=== PATIENT | female | born 1975 | race Caucasian/White ===

== ENCOUNTER → 2016-09-11 | Outpatient (CLI) | payer OTHER ==
[~2016-09-11] MED LIST: /PROG10CA OR; ASPI81TA83 OR; PERC5TAB8 OR
[2016-09-11 14:42] LABS: BASO % 0.3 % (0.0-1.0); EOS # 0.1 K/mm3 (0.0-0.50); EOS % 0.9 % (0.0-3.0); LARGE UNSTAINED CELL # 0.1 K/mm3 (0.0-0.4); LARGE UNSTAINED CELL % 1.3 % (0.0-4.0); LYMPH # 1.5 K/mm3 (1.5-4.5); MEAN CORPUSCULAR HEMOGLOBIN 30.9 pg (27.0-33.0); MEAN CORPUSCULAR HGB CONC 34.8 g/dl (32.0-36.5); MEAN CORPUSCULAR VOLUME 88.8 fl (80.0-96.0); MONO # 0.4 K/mm3 (0.0-0.8); MONO % 3.7 % (0.0-5.0); NEUTROPHILS # 8.9 K/mm3 (1.8-7.7); NEUTROPHILS % 79.9 % (36.0-66.0); PLATELET COUNT, AUTOMATED 290 k/mm3 (150-450); RED CELL DISTRIBUTION WIDTH 13.1 % (11.5-14.5); WHITE BLOOD COUNT 11.1 K/mm3 (4.0-10.0)
== END ==
LOC: M LAB 13:02
PROVIDERS: ATTEND Obstetrics & Gynecology
DX: O09.512 Supervision of elderly primigravida, second trimester (principal)

== ENCOUNTER → 2016-09-19 | Outpatient (CLI) | payer OTHER | LOC: M LAB 07:41 | PROVIDERS: ATTEND Obstetrics & Gynecology | DX: Z34.83 Encounter for supervision of other normal pregnancy, third trimester (principal) ==

== ENCOUNTER → 2016-10-23 | Outpatient (REF) | payer OTHER | LOC: M LAB REF 12:31 | PROVIDERS: ATTEND Advanced Practice Midwife | DX: Z36 Encounter for antenatal screening of mother (principal); Z3A.35 35 weeks gestation of pregnancy ==

== ENCOUNTER 2016-11-18 05:24 | Inpatient (IN) | payer OTHER ==
[2016-11-18] VITALS (8 sets, daily range): BP systolic 105–120; BP diastolic 54–75
[~2016-11-18] VITALS: Ht 198.1 cm; Wt 104.0 kg
[~2016-11-18 05:24] MED LIST changes: +ACYC200CA PO; +GLYB5TA GT; +MAGN500C PO
[2016-11-18] MEDS ORDERED: BICITRA 30ML SOLN UDC PO ONE (05:45)
[2016-11-18] MEDS ORDERED: LR 1,000 ML IV SCH ×2 (05:45→10:15)
[2016-11-18] MEDS ORDERED: LR 800 ML IV ONE (05:45)
[2016-11-18 06:34] LABS: MEAN CORPUSCULAR HEMOGLOBIN 29.5 pg (27.0-33.0); MEAN CORPUSCULAR HGB CONC 34.3 g/dl (32.0-36.5); MEAN CORPUSCULAR VOLUME 86.2 fl (80.0-96.0); RED CELL DISTRIBUTION WIDTH 14.4 % (11.5-14.5); WHITE BLOOD COUNT 11.9 K/mm3 (4.0-10.0)
[2016-11-18] MEDS ORDERED: RANI15TA PO (06:49)
[2016-11-18] MEDS ORDERED: TUMS500C PO (06:49)
[2016-11-18 08:17] LABS: ANION GAP 11 MEQ/L (8-16); BLOOD UREA NITROGEN 9 MG/DL (7-18); CALCIUM LEVEL 9.2 MG/DL (8.5-10.1); CARBON DIOXIDE LEVEL 21 MEQ/L (21-32); CHLORIDE LEVEL 110 MEQ/L (98-107); CREATININE FOR GFR 0.75 MG/DL (0.55-1.02); GLOMERULAR FILTRATION RATE > 60.0 (>58); GLUCOSE, FASTING 105 MG/DL (70-105); POTASSIUM SERUM 3.9 MEQ/L (3.5-5.1); SODIUM LEVEL 142 MEQ/L (136-145)
--- NOTE | 2016-11-18 08:17 | HPE ---
DATE OF ADMISSION: 11/18/2016 Thao is a 41-year-old female 7, para 1-0-5-1 with a history of prior section. EDC 11/22/2016, EGA 39+ weeks gestation who is being admitted for elective repeat section. The patient also desires permanent tubal sterilization. Upon evaluation in labor and delivery, no bleeding. No leakage of fluid. Good movement. Her records reviewed which was essentially . The patient did have gestational diabetes with this , well-controlled. lab: Blood type is O+, rubella immune, hepatitis negative, HIV negative, GC chlamydia normal. Her 3-hour testing was also abnormal. negative MEDICAL HISTORY: Significant for: Depression. Migraine. History of herpes infection for which she has been on suppressive therapy since 36 weeks. PAST SURGICAL HISTORY: Dilation and curettage (D and C). Breast augmentation. Shoulder surgery. times one. SOCIAL HISTORY: She is . Denies any alcohol, drugs or cigarette smoking. REVIEW OF SYSTEMS: Unremarkable. FAMILY HISTORY: Significant for ovarian cancer. MEDICATION: - glyburide - vitamins ALLERGIES: No known drug allergies. PHYSICAL EXAMINATION: Obese female in no acute distress. Abdomen: Soft, nontender, nondistended. Extremities: No clubbing, cyanosis or edema. Vaginal exam deferred. Tracing reviewed category one tracing. ASSESSMENT: 1. Intrauterine at 39 weeks gestation. 2. History of prior section for elective repeat section. 3. Desires permanent tubal sterilization. 4. Gestational diabetes on glyburide. delivery. Awaiting OR for repeat section and bilateral tubal ligation.
[2016-11-18] MEDS ORDERED: NALBUPHINE HCL 10 MG/ML AMP (J2300) IV PRN (08:36)
[2016-11-18] MEDS ORDERED: NALOXONE INJ 0.4 MG/1 ML VIAL (J2310) IV PRN ×2 (08:36)
[2016-11-18] MEDS ORDERED: ONDANSETRON 4MG/2ML VIAL (J2405) IV PRN ×2 (08:36→10:15)
[2016-11-18] MEDS ORDERED: OXYTOCIN INJ 10 UNITS/ML VIAL (J2590) As Ordered ONE (08:48)
[2016-11-18] MEDS ORDERED: MORPHINE PRES-FREE INJ 10 MG/10 ML VIAL (J2274) As Ordered ONE (08:48)
[2016-11-18] MEDS ORDERED: ePHEDrine SULFATE 25 MG/5 ML(5MG/ML) SYRINGE As Ordered ONE (08:48)
[2016-11-18] MEDS: PRENATAL VITAMIN TAB PO SCH (09:00)
[2016-11-18] MEDS ORDERED: ONDANSETRON 4MG/2ML VIAL (J2405) As Ordered ONE (09:01)
[2016-11-18] MEDS ORDERED: KETOROLAC 60 MG/2 ML VIAL (J1885) As Ordered ONE (09:01)
[2016-11-18] MEDS ORDERED: HEPATITIS B VAC *BIRTH DOSE ONLY*(ENGERIX) 10 MCG/0.5 ML SYRINGE As Ordered ONE (09:10)
[2016-11-18] MEDS ORDERED: PHYTONADIONE 1 MG/0.5 ML SYRINGE (J3430) As Ordered ONE (09:10)
[2016-11-18] MEDS ORDERED: ERYTHROMYCIN OPHTH OINT As Ordered ONE (09:10)
[2016-11-18 09:13] LABS: CORD GAS ABE A -5.4; CORD GAS HCO3 A 20.7 MEQ/L; CORD GAS O2 SAT A 75.5 %; CORD GAS PCO2 A 42.4 mmHg; CORD GAS PH A 7.307 UNITS; CORD GAS PO2 A 36.9 mmHg; CORD GAS SBC A 19.6 MEQ/L
[2016-11-18 09:15] LABS: CORD GAS ABE V -2.6; CORD GAS HCO3 V 24.3 MEQ/L; CORD GAS O2 SAT V 64.4 %; CORD GAS PCO2 V 49.2 mmHg; CORD GAS PH V 7.311 UNITS; CORD GAS PO2 V 29.4 mmHg; CORD GAS SBC V 21.5 MEQ/L; CORD GAS TCO2 V 25.8 MEQ/L
[2016-11-18] MEDS ORDERED: MEPERIDINE 50 MG/ML 1ML VIAL (J2175) As Ordered ONE (09:17)
[2016-11-18] MEDS ORDERED: LIDOCAINE 2% INJ 100 MG/5 ML SDV (FOR ANES.) As Ordered ONE (09:17)
[2016-11-18] MEDS ORDERED: PROPOFOL 200 MG/20 ML VIAL As Ordered ONE (09:18)
[2016-11-18] MEDS ORDERED: MEASLES,MUMPS,RUBELLA VACCINE INJ (MMR-II) (90707) SC SCH (09:45)
[2016-11-18] MEDS ORDERED: NORCO, ANEXSIA 5/325MG TABLET (HYDROcodone/ACETAMINOPHEN) PO PRN (09:45)
[2016-11-18] MEDS ORDERED: RHOGAM 300 MCG (1500 IU) INJ (J2790) IM SCH (09:45)
[2016-11-18] MEDS ORDERED: METOCLOPRAMIDE INJ 10MG/2ML VIAL (J2765) IV PRN (10:15)
[2016-11-18] MEDS ORDERED: fentaNYL 100 MCG/2 ML INJECTION (J3010) IV PRN (10:15)
[2016-11-18] MEDS ORDERED: PERCOCET 5MG/325MG TAB PO PRN (10:15)
[2016-11-18] MEDS: METOCLOPRAMIDE INJ 10MG/2ML VIAL (J2765) IV PRN ×2 (13:52→19:57)
[2016-11-18] MEDS: IBUPROFEN 800 MG TAB PO SCH (18:23)
[2016-11-18] MEDS: DOCUSATE SODIUM 100 MG CAP PO SCH (19:57)
[2016-11-18] MEDS: LR 1,000 ML IV SCH ×2 (20:50→20:51)
[2016-11-18] MEDS: NORCO, ANEXSIA 5/325MG TABLET (HYDROcodone/ACETAMINOPHEN) PO PRN (21:56)
[2016-11-19] MEDS: IBUPROFEN 800 MG TAB PO SCH ×3 (01:04→16:47)
[2016-11-19] MEDS: LR 1,000 ML IV SCH ×3 (01:43→16:48)
[2016-11-19 02:24] VITALS: BP 104/54
[2016-11-19] MEDS: NORCO, ANEXSIA 5/325MG TABLET (HYDROcodone/ACETAMINOPHEN) PO PRN ×4 (05:05→21:05)
[2016-11-19 06:08] VITALS: BP 103/51
[2016-11-19 07:07] LABS: MEAN CORPUSCULAR HGB CONC 34.4 g/dl (32.0-36.5); MEAN CORPUSCULAR VOLUME 87.1 fl (80.0-96.0); RED CELL DISTRIBUTION WIDTH 14.9 % (11.5-14.5); WHITE BLOOD COUNT 9.3 K/mm3 (4.0-10.0)
[2016-11-19 07:23] LABS: ANION GAP 6 MEQ/L (8-16); BLOOD UREA NITROGEN 6 MG/DL (7-18); CALCIUM LEVEL 8.2 MG/DL (8.5-10.1); CARBON DIOXIDE LEVEL 26 MEQ/L (21-32); CHLORIDE LEVEL 107 MEQ/L (98-107); CREATININE FOR GFR 0.68 MG/DL (0.55-1.02); GLOMERULAR FILTRATION RATE > 60.0 (>58); GLUCOSE, FASTING 105 MG/DL (70-105); POTASSIUM SERUM 3.9 MEQ/L (3.5-5.1); SODIUM LEVEL 139 MEQ/L (136-145)
[2016-11-19] MEDS: PRENATAL VITAMIN TAB PO SCH (08:36)
[2016-11-19] MEDS: DOCUSATE SODIUM 100 MG CAP PO SCH ×2 (08:36→21:04)
--- NOTE | 2016-11-19 09:36 | RO ---
DATE OF PROCEDURE: 11/18/2016 Thao is a 41-year-old female, 7, para 0-5-1, who is admitted at 39+ weeks gestation for an elective repeat section. The patient also desires permanent tubal sterilization. During this , she had gestational diabetes, for which she was on glyburide. PREOPERATIVE DIAGNOSES: 1. Term for an elective repeat section. 2. Gestational diabetes. 3. Desires permanent tubal sterilization. POSTPROCEDURE DIAGNOSES: 1. Term for an elective repeat section. 2. Gestational diabetes. 3. Desires permanent tubal sterilization. 4. Dense pelvic adhesion. PROCEDURES: 1. Repeat section. 2. Bilateral tubal ligation using Filshie clips 3. Revision of old scar. 4. Lysis of adhesions. ANESTHESIA: Spinal. SURGEON: Dr. Urrutia RESPIRATORY ASSISTANT: Dr. Nicole COMPLICATIONS: None. ESTIMATED BLOOD LOSS: 500 mL. FINDINGS: Male in occiput transverse position. scores 8 and 9. weight 8 pounds 10 ounces. Normal-appearing placenta. The left tube was found to be slightly adherent at the fimbriated end. The right tube seems to be missing from a prior ectopic . PROCEDURE: After obtaining informed consent the patient was taken to the operating room where a spinal anesthetic was found to be adequate. She was then draped and prepped usual sterile fashion in the supine position. At this point, elliptical incision was made over her old scar. The old scar was removed. The incision was carried down to the fascia. Fascia was incised in midline fashion and carried through laterally. Superior aspect of the fascia was then grasped with two Viet clamps, tented off and dissected off the rectus muscles sharply. The inferior aspect was dissected off in a similar fashion. Dense adhesions were found at the level of her prior surgeries and abdominoplasty. The rectus muscle was found to be encapsulated with a fibrous sheath. After careful dissection and lysing of adhesions, we were able to enter the peritoneal cavity. Upon entering the peritoneal cavity, adhesions were also noted to the omentum. These were taken down with Metzenbaum and Bovie. We then were able to create a bladder flap and make a low-transverse uterine incision to deliver the infant. The was delivered in an atraumatic fashion. An anterior placenta was encountered. Nose and mouth bulb suctioned. Cord doubly clamped and cut, and infant was handed over to the waiting warmer. Cord blood and cord gas were sent. The placenta removed manually. Uterus cleared of all clot and debris and the uterine incision was then repaired in two separate layers of #0 Vicryl suture. At this point, attention was turned to the fallopian tube on the left where the fimbriated end was found to be nubbed. The rest of the tube appeared to be healthy. A Filshie clip was then applied approximately 2-3 cm away from the cornual area on that tube. We then turned our attention to the right fallopian tube. This was found to be already segmented from the prior ectopic that she had. There is no visible viable tube noted. At this point, the pelvis was copiously irrigated with normal saline and suctioned out. Attention turned to the peritoneum, which was closed using #2-0 Vicryl. Fascia closed in two separate segments using #0 PDS suture and the skin was closed in a subcuticular fashion using #3-0 Vicryl. The patient tolerated procedure well. Steri-Strips placed. She was then transferred to recovery room in stable condition.
[2016-11-19 10:00] VITALS: BP 124/64
[2016-11-19 14:00] VITALS: BP 107/57
[2016-11-19 18:10] VITALS: BP 128/58
[2016-11-19 22:32] VITALS: BP 119/59
[2016-11-20] MEDS: IBUPROFEN 800 MG TAB PO SCH ×2 (00:25→07:30)
[2016-11-20] MEDS: NORCO, ANEXSIA 5/325MG TABLET (HYDROcodone/ACETAMINOPHEN) PO PRN ×2 (01:10→05:35)
[2016-11-20] MEDS: LR 1,000 ML IV SCH ×2 (01:43→09:43)
[2016-11-20 06:00] VITALS: BP 117/70
[2016-11-20] MEDS: PRENATAL VITAMIN TAB PO SCH (07:28)
[2016-11-20] MEDS: DOCUSATE SODIUM 100 MG CAP PO SCH (07:28)
--- NOTE | 2016-11-20 08:54 | DS.PDOC ---
Discharge Summary General Date of Admission Nov 18, 2016 at 05:24 Date of Discharge 11/20/2016 Attending Physician: Tristian Urrutia DO Discharge Summary PROCEDURES PERFORMED DURING STAY: Elective repeat section with permanent tubal sterilization. ADMITTING DIAGNOSES: 1. IUP at 39 weeks gestation. 2. History of prior section. 3. Gestational diabetes controlled with oral medication-Glyburide. 4. Elective repeat section with desire for permanent tubal sterilization DISCHARGE DIAGNOSES: 1. Day 2 postoperative from elective repeat section with tubal sterilization. COMPLICATIONS/CHIEF COMPLAINT: Previous C Section. HISTORY OF PRESENT ILLNESS: Patient is a 41-year-old female who is a 052 at 39 weeks gestation with an EDC of 11/22/2016. She initiated her care in the first trimester at [facility]. 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 Patient has been on suppressive therapy since 36 weeks. She also has a history of migraines and depression. Patient was admitted to labor and delivery for an elective repeat section with desire for tubal sterilization. HOSPITAL COURSE: Uncomplicated. DISCHARGE MEDICATIONS: Please see below. Percocet sent from a office. Discontinue glyburide. Continue with Motrin 800 mg by mouth care when necessary for pain. Obtained OTC. May take Tylenol when not taking Percocet. Tylenol thousand milligrams by mouth when necessary for pain every 8 hours. ALLERGIES: Please see below. PHYSICAL EXAMINATION ON DISCHARGE: VITAL SIGNS: Please see below. GENERAL: RESPIRATORY EXAMINATION: Rate is regular. No use of accessory muscles. ABDOMINAL EXAMINATION: Low transverse incision: Edges approximated. Steri- Strips in place. No drainage from the site. Superior she incision is slightly red. Fundus is firm and at umbilicus. Perinium: Lochia is scant bright red. EXTREMITIES: Generalized edema with no pitting. LABORATORY DATA: Please see below. ACTIVITY: As tolerated. DIET: Regular. DISCHARGE INSTRUCTIONS: 1. Patient is to follow-up in the office at 2 weeks for incision check and 6 weeks for visit. 2. Reviewed signs and symptoms of endometritis, mastitis, hemorrhage, infection at the incision site, DVT, pulmonary embolism, pain management, and pelvic rest. Patient is to call provider with any signs or symptoms of the above. DISCHARGE CONDITION: Stable. Vital Signs/I&Os Vital Signs Date Time Temp Pulse Resp B/P Pulse Ox O2 Delivery O2 Flow Rate FiO2 11/20/16 06:05 18 11/20/16 06:00 97.1 95 117/70 98 Room Air Discharge Medications Scheduled Acyclovir (Zovirax) 200 Mg Cap 1,000 MG PO DAILY (Reported) Glyburide (Glyburide) 5 Mg Tab 5 MG GT DAILY (Reported) Magnesium Oxide (Magnesium) 500 Mg Cap 500 MG PO DAILY (Reported) Ranitidine Hcl (Zantac) 150 Mg Tab 1 TAB PO BID (Reported) Miscellaneous Medications Calcium Carbonate (Tums) 500 Mg Chw 500 MG PO (Reported) Allergies Coded Allergies: No Known Drug Allergy (Verified Allergy, Unknown, 11/25/12) JULIO VELEZ CNM Nov 20, 2016 08:54
[2016-11-20] MEDS ORDERED: IBUP-1114 PO (10:00)
[2016-11-20] MEDS ORDERED: PRENTAB9 PO (10:00)
== END 2016-11-20 11:16 | disposition home or self-care (01) | DRG 766 ==
LOC: M LDI 05:24 → M OBS 11:23
PROVIDERS: ADMIT Obstetrics & Gynecology; ATTEND Obstetrics & Gynecology
PROC: 0UL70DZ Occlusion of Bilateral Fallopian Tubes with Intraluminal Device, Open Approach (ICD-10-PCS; 2016-11-18)
PROC: 10D00Z1 Extraction of Products of Conception, Low, Open Approach (ICD-10-PCS; principal; 2016-11-18 07:30)
DX: O34.211 Maternal care for low transverse scar from previous cesarean delivery (principal); Z37.0 Single live birth; Z3A.39 39 weeks gestation of pregnancy; O09.523 Supervision of elderly multigravida, third trimester; Z30.2 Encounter for sterilization; O24.425 Gestational diabetes mellitus in childbirth, controlled by oral hypoglycemic drugs

== ENCOUNTER → 2016-12-09 | Outpatient (REF) | payer OTHER ==
[~2016-12-09] MED LIST changes: +IBUP-1114 PO; +PRENTAB9 PO; +RANI15TA PO; +TUMS500C PO
== END ==
LOC: M LAB REF 13:00
PROVIDERS: ATTEND Advanced Practice Midwife
DX: L66.2 Folliculitis decalvans (principal)

== ENCOUNTER → 2017-01-01 | Outpatient (REF) | payer OTHER | LOC: M LAB REF 16:37 | PROVIDERS: ATTEND Obstetrics & Gynecology | DX: A49.02 Methicillin resistant Staphylococcus aureus infection, unspecified site (principal) ==

== ENCOUNTER → 2017-01-07 | Outpatient (REF) | payer OTHER | LOC: M LAB REF 16:30 | PROVIDERS: ATTEND Obstetrics & Gynecology | DX: A49.02 Methicillin resistant Staphylococcus aureus infection, unspecified site (principal) ==

== ENCOUNTER → 2017-06-04 | Outpatient (CLI) | payer BC ==
[2017-06-04 12:30] LABS: ANION GAP 5 MEQ/L (8-16); BLOOD UREA NITROGEN 11 MG/DL (7-18); CALCIUM LEVEL 9.2 MG/DL (8.5-10.1); CARBON DIOXIDE LEVEL 27 MEQ/L (21-32); CHLORIDE LEVEL 108 MEQ/L (98-107); CREATININE FOR GFR 0.64 MG/DL (0.55-1.02); GLOMERULAR FILTRATION RATE > 60.0 (>58); GLUCOSE, FASTING 92 MG/DL (70-105); POTASSIUM SERUM 4.8 MEQ/L (3.5-5.1); SODIUM LEVEL 140 MEQ/L (136-145)
== END ==
LOC: M LAB 10:39
PROVIDERS: ATTEND Family Medicine
DX: R73.9 Hyperglycemia, unspecified (principal)

== ENCOUNTER → 2018-02-09 | Outpatient (CLI) | payer BC, OTHER | LOC: M RAD 11:19 | DX: Z12.31 Encounter for screening mammogram for malignant neoplasm of breast (principal) | CPT/HCPCS: 77067 ==

== ENCOUNTER → 2019-10-09 | Outpatient (REF) | payer BC ==
[~2019-10-09] MED LIST changes: -/PROG10CA OR; +ACYC1CAP20 PO; -ACYC200CA PO; +PROM1CAP OR
[2019-10-09 18:30] LABS: INFLUENZA A AMPLIFICATION NEGATIVE (NEGATIVE); INFLUENZA B AMPLIFICATION POSITIVE (NEGATIVE)
== END ==
LOC: M LAB REF 10:19
PROVIDERS: ATTEND Physician Assistant Medical
DX: R50.9 Fever, unspecified (principal); R52 Pain, unspecified

== ENCOUNTER → 2020-10-14 | Outpatient (REF) | payer BC ==
[~2020-10-14] MED LIST changes: +FLOM0.4C39 PO; -GLYB5TA GT; +GLYB5TAB6 GT; +KETO10TAB PO; +ZOFR4TAB16 PO
[2020-10-14 19:45] LABS: APPEARANCE, URINE CLEAR (CLEAR); BACTERIA, URINE AUTO 2+ (NEGATIVE); BILIRUBIN, URINE AUTO NEGATIVE (NEGATIVE); BLOOD, URINE BLOOD NEGATIVE (NEGATIVE); COLOR, URINE STRAW (YELLOW); GLUCOSE, URINE (UA) AUTO NEGATIVE (NEGATIVE); KETONE, URINE AUTO NEGATIVE (NEGATIVE); LEUKOCYTE ESTERASE, URINE AUTO NEGATIVE (NEGATIVE); NITRITE, URINE AUTO NEGATIVE (NEGATIVE); PROTEIN, URINE AUTO NEGATIVE (NEGATIVE); RBC, URINE AUTO 0 /HPF (0-3); SPECIFIC GRAVITY URINE AUTO 1.004 (1.002-1.035); SQUAMOUS EPITHELIAL CELL UR AU 1 /HPF (0-6); UROBILINOGEN, URINE AUTO 0.2 mg/dL (0.0-2.0); WBC, URINE AUTO 0 /HPF (0-3)
== END ==
LOC: M LAB REF 17:26
PROVIDERS: ATTEND Physician Assistant Medical
DX: N39.0 Urinary tract infection, site not specified (principal)

== ENCOUNTER 2020-10-16 15:10 | Emergency (ER) | payer BC ==
[~2020-10-16] VITALS: Ht 167.6 cm; Wt 78.2 kg
[~2020-10-16 15:10] MED LIST changes: -FLOM0.4C39 PO; -KETO10TAB PO; -ZOFR4TAB16 PO
--- OUTSIDE RECORDS SUMMARY | 2020-10-16 15:17 | CCD | Continuity of Care Document ---
Author Author Thao SANCHEZ DIVISION ORDER ANALYST Organization Unknown Address [address] [place] [id number] Phone [phone] Care Team Providers Care Risk Management Specialist Name Role Phone Jose Cruz Unavailable Problems Active Problems Provider Date Acquired trigger finger JONAHTON Lopez Onset: Social History Type Date Description Comments Sex Unknown ETOH Use Denies alcohol use Tobacco Use Start: Unknown Patient has never smoked Recreational Drug Use Denies Drug Use Allergies, Adverse Reactions, Alerts Active Allergies Reaction Severity Comments Date Keflex Rash 09/07/2020 NKFA 09/07/2020 Seasonal 09/07/2020 Medications Active Medications SIG Qnty Indications Ordering Provide r Date Multivitamin Tablets 1 by mouth every day Unknown Aspirin 81mg Tablets DR take one by mouth daily with food Unknown Phentermine HCL 37.5mg Capsules Unknown MCT Oil Oil Unknown Collagen Ultra Capsules Unknown Immunizations Description No Information Available Vital Signs Date Vital Result Comment 09/07/2020 11:21am Body Temperature 97.2 F 04/01/2016 4:04pm BP Systolic 128 mmHg BP Diastolic 49 mmHg Heart Rate 69 /min Weight 181.00 lb Weight 82.102 kg Height 66 inches 5'6" BMI (Body Mass Index) 29.2 kg/m2 BSA (Body Surface Area) 1.92 m2 Results Description No Information Available Procedures Description No Information Available Medical Devices Description No Information Available Encounters Type Date Location Provider Dx Diagnosis Office Visit 09/07/2020 11:20a [facility] Sami Lopez PEDIATRIC INTENSIVE PHYSICIAN M65.341 Trigger finger, right ring finger Assessments Date Code Description Provider 09/07/2020 M65.341 Trigger finger, right ring finge r JONATHON Lopez Plan of Treatment 09/07/2020 - JONATHON Lopez* M65.341 Trigger finger, right ring finger* Follow up:* 6 Weeks * Instructions:* Keep doing self stretching and strengthening. In any deterioration contact my clinic. Occupational Therapy as instructed. Functional Status Description No Information Available Mental Status Description No Information Available Referrals Description No Information Available
--- OUTSIDE RECORDS SUMMARY | 2020-10-16 15:18 | CCD ---
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 Name Role Phone Ornelas, C Evelyn PA Unavailable Unavailable Ornelas, C Evelyn PA Unavailable Unavailable Ornelas, C Evelyn PA Unavailable Unavailable Ornelas, C Evelyn PA Unavailable Unavailable Ornelas, C Evelyn PA Unavailable Unavailable Ornelas, C Evelyn PA Unavailable Unavailable Ornelas, C Evelyn PA Unavailable Unavailable Ornelas, C Evelyn PA Unavailable Unavailable Ornelas, C Evelyn PA Unavailable Unavailable Ornelas, C Evelyn PA Unavailable Unavailable Ornelas, C Evelyn PA Unavailable Unavailable Ornelas, C Evelyn PA Unavailable Unavailable Ornelas, C Evelyn PA Unavailable Unavailable Ornelas, C Evelyn PA Unavailable Unavailable Ornelas, C Evelyn PA Unavailable Unavailable Ornelas, C Evelyn PA Unavailable Unavailable Ornelas, C Evelyn PA Unavailable Unavailable Ornelas, C Evelyn PA Unavailable Unavailable Ornelas, C Evelyn PA Unavailable Unavailable Ornelas, C Evelyn PA Unavailable Unavailable Ornelas, C Evelyn PA Unavailable Unavailable Ornelas, C Evelyn PA Unavailable Unavailable Ornelas, C Evelyn PA Unavailable Unavailable Ornelas, C Evelyn PA Unavailable Unavailable Ornelas, C Evelyn PA Unavailable Unavailable Ornelas, C Evelyn PA Unavailable Unavailable Ornelas, C Evelyn PA Unavailable Unavailable Ornelas, C Evelyn PA Unavailable Unavailable Ornelas, C Evelyn PA Unavailable Unavailable Ornelas, C Evelyn PA Unavailable Unavailable Ornelas, C Evelyn PA Unavailable Unavailable Ornelas, C Evelyn PA Unavailable Unavailable Ornelas, C Evelyn PA Unavailable Unavailable Ornelas, C Evelyn PA Unavailable Unavailable Ornelas, C Evelyn PA Unavailable Unavailable Ornelas, C Evelyn PA Unavailable Unavailable Ornelas, C Evelyn PA Unavailable Unavailable Ornelas, C Evelyn PA Unavailable Unavailable Ornelas, C Evelyn PA Unavailable Unavailable Ornelas, C Evelyn PA Unavailable Unavailable Ornelas, C Evelyn PA Unavailable Unavailable Ornelas, C Evelyn PA Unavailable Unavailable Ornelas, C Evelyn PA Unavailable Unavailable Ornelas, C Evelyn PA Unavailable Unavailable Ornelas, C Evelyn PA Unavailable Unavailable Ornelas, C Evelyn PA Unavailable Unavailable Ornelas, C Evelyn PA Unavailable Unavailable SlerosalindakaArnulfojtech Unavailable Unavailable SlerosalindakaArnulfojtech Unavailable Unavailable Slezka Vojtech Unavailable Unavailable Slezka Vojtech Unavailable Unavailable Slezka Vojtech Unavailable Unavailable Slezka Vojtech Unavailable Unavailable SlezkaArnulfojtech Unavailable Unavailable SlerosalindakaArnulfojtech Unavailable Unavailable SlezkaArnulfojtech Unavailable Unavailable Slezka Vojtech MD Unavailable Unavailable Slezka Vojtech MD Unavailable Unavailable Slezka Vojtech MD Unavailable Unavailable SlezkaArnulfojtech Unavailable Unavailable SlezkaArnulfojtech Unavailable Unavailable Slezka Vojtech Unavailable Unavailable Slezka Vojtech MD Unavailable Unavailable Slezka Vojtech MD Unavailable Unavailable Slezka Vojtech MD Unavailable Unavailable Slezka Vojtech MD Unavailable Unavailable Slezka Vojtech Unavailable Unavailable Slezka Vojtech Unavailable Unavailable Slezka Vojtech MD Unavailable Unavailable Slezka Vojtech MD Unavailable Unavailable Slezka Vojtech MD Unavailable Unavailable Slezka Vojtech MD Unavailable Unavailable Slezka Vojtech MD Unavailable Unavailable Slezka Vojtech Unavailable Unavailable Slezka Vojtech MD Unavailable Unavailable Slezka Vojtech MD Unavailable Unavailable SlezkaFrancktech Unavailable Unavailable SlezkaArnulfojtech Unavailable Unavailable Slezka Vojtech Unavailable Unavailable SlezkaArnulfojtech Unavailable Unavailable SlezkaArnulfojtech Unavailable Unavailable SlezkaArnulfojtech Unavailable Unavailable SlezkaArnulfojtech Unavailable Unavailable SlezkaArnulfojtech Unavailable Unavailable Slezka Vojtech Unavailable Unavailable Slezka Vojtech Unavailable Unavailable SlezkaArnulfojtech Unavailable Unavailable SlezkaArnulfojtech Unavailable Unavailable Slezka Vojtech Unavailable Unavailable Slezka Vojtech Unavailable Unavailable Slezka Vojtech Unavailable Unavailable SlezkaArnulfojtech Unavailable Unavailable Slezka Vojtech MD Unavailable Unavailable SlezkaArnulfojtech Unavailable Unavailable SlezkaArnulfojtech MD Unavailable Unavailable SlezkaArnulfojtech Unavailable Unavailable Slezka Vojtech Unavailable Unavailable SlezkaArnulfojtech Unavailable Unavailable SlezkaArnulfojtech Unavailable Unavailable SlezkaArnulfojtech Unavailable Unavailable SlezkaArnulfojtech MD Unavailable Unavailable SlezkaArnulfojtech Unavailable Unavailable SlezkaArnulfojtech Unavailable Unavailable SlezkaArnulfojtech Unavailable Unavailable SlezkaArnulfojtech MD Unavailable Unavailable Lonnie, D Uri COMMISSARY MANAGER Unavailable Unavailable Lonnie, D Uri COMMISSARY MANAGER Unavailable Unavailable Lonnie, D Uri COMMISSARY MANAGER Unavailable Unavailable Lonnie, D Uri COMMISSARY MANAGER Unavailable Unavailable Lonnie, D Uri COMMISSARY MANAGER Unavailable Unavailable Lonnie, D Uri COMMISSARY MANAGER Unavailable Unavailable Lonnie, D Uri COMMISSARY MANAGER Unavailable Unavailable Lonnie, D Uri COMMISSARY MANAGER Unavailable Unavailable Lonnie, D Uri COMMISSARY MANAGER Unavailable Unavailable Lonnie, D Uri COMMISSARY MANAGER Unavailable Unavailable Lonnie, D Uri COMMISSARY MANAGER Unavailable Unavailable Lonnie, D Uri COMMISSARY MANAGER Unavailable Unavailable Lonnie, D Uri COMMISSARY MANAGER Unavailable Unavailable Lonnie, D Uri COMMISSARY MANAGER Unavailable Unavailable Lonnie, D Uri COMMISSARY MANAGER Unavailable Unavailable Lonnie, D Uri COMMISSARY MANAGER Unavailable Unavailable Lonnie, D Uri COMMISSARY MANAGER Unavailable Unavailable Lonnie, D Uri COMMISSARY MANAGER Unavailable Unavailable Lonnie, D Uri COMMISSARY MANAGER Unavailable Unavailable Lonnie, D Uri COMMISSARY MANAGER Unavailable Unavailable Lonnie, D Uri COMMISSARY MANAGER Unavailable Unavailable Lonnie, D Uri COMMISSARY MANAGER Unavailable Unavailable Lonnie, D Uri COMMISSARY MANAGER Unavailable Unavailable Lonnie, D Uri COMMISSARY MANAGER Unavailable Unavailable Lonnie, D Uri COMMISSARY MANAGER Unavailable Unavailable Lonnie, D Uri COMMISSARY MANAGER Unavailable Unavailable Lonnie, D Uri COMMISSARY MANAGER Unavailable Unavailable Lonnie, D Uri COMMISSARY MANAGER Unavailable Unavailable Lonnie, D Uri COMMISSARY MANAGER Unavailable Unavailable Lonnie, D Uri COMMISSARY MANAGER Unavailable Unavailable Lonnie, D Uri COMMISSARY MANAGER Unavailable Unavailable Lonnie, D Uri COMMISSARY MANAGER Unavailable Unavailable Lonnie, D Uri COMMISSARY MANAGER Unavailable Unavailable Lonnie, D Uri COMMISSARY MANAGER Unavailable Unavailable Lonnie, D Uri COMMISSARY MANAGER Unavailable Unavailable Anthony, Jose PA Unavailable Unavailable Anthony, Jose PA Unavailable Unavailable Anthony, Jose PA Unavailable Unavailable Anthony, Jose PA Unavailable Unavailable Anthony, Jose PA Unavailable Unavailable Anthony, Jose PA Unavailable Unavailable Anthony, Jose PA Unavailable Unavailable Anthony, Jose PA Unavailable Unavailable Anthony, Jose PA Unavailable Unavailable Anthony, Jose PA Unavailable Unavailable Anthony, Jose PA Unavailable Unavailable Anthony, Jose PA Unavailable Unavailable Anthony, Jose PA Unavailable Unavailable Anthony, Jose PA Unavailable Unavailable Anthony, Jose PA Unavailable Unavailable Anthony, Jose PA Unavailable Unavailable Anthony, Jose PA Unavailable Unavailable Anthony, Jose PA Unavailable Unavailable Anthony, Jose PA Unavailable Unavailable Anthony, Jose PA Unavailable Unavailable Anthony, Jose PA Unavailable Unavailable Anthony, Jose PA Unavailable Unavailable Anthony, Jose PA Unavailable Unavailable Anthony, Jose PA Unavailable Unavailable Anthony, Jose PA Unavailable Unavailable Anthony, Jose PA Unavailable Unavailable Anthony, Jose PA Unavailable Unavailable Anthony, Jose PA Unavailable Unavailable Anthony, Jose PA Unavailable Unavailable Anthony, Jose PA Unavailable Unavailable Anthony, Jose PA Unavailable Unavailable Anthony, Jose PA Unavailable Unavailable Anthony, Jose PA Unavailable Unavailable Anthony, Jose PA Unavailable Unavailable Anthony, Jose PA Unavailable Unavailable Anthnoy, Jose PA Unavailable Unavailable Anthony, Jose PA Unavailable Unavailable Anthony, Jose PA Unavailable Unavailable Anthony, Jose PA Unavailable Unavailable Anthony, Jose PA Unavailable Unavailable Anthony, Jose PA Unavailable Unavailable Anthony, Jose PA Unavailable Unavailable Anthony, Jose PA Unavailable Unavailable Anthony, Jose PA Unavailable Unavailable Anthony, Jose PA Unavailable Unavailable Anthony, Jose PA Unavailable Unavailable Anthony, Jose PA Unavailable Unavailable Anthony, Jose PA Unavailable Unavailable Anthony, Jose PA Unavailable Unavailable Rosalinda SOL MD Unavailable Unavailable Rosalinda SOL MD Unavailable Unavailable Rosalinda SOL MD Unavailable Unavailable PARNES, Z BELÉN MD Unavailable Unavailable PARNES, Z BELÉN MD Unavailable Unavailable PARNES, Z BELÉN MD Unavailable Unavailable PARNES, Z BELÉN MD Unavailable Unavailable PARNES, Z BELÉN MD Unavailable Unavailable PARNES, Z BELÉN MD Unavailable Unavailable PARNES, Z BELÉN MD Unavailable Unavailable PARNES, Z BELÉN MD Unavailable Unavailable PARNES, Z BELÉN MD Unavailable Unavailable PARNES, Z BELÉN MD Unavailable Unavailable PARNES, Z BELÉN MD Unavailable Unavailable PARNES, Z BELÉN MD Unavailable Unavailable PARNES, Z BELÉN MD Unavailable Unavailable PARNES, Z BELÉN MD Unavailable Unavailable PARNES, Z BELÉN MD Unavailable Unavailable PARNES, Z BELÉN MD Unavailable Unavailable PARNES, Z BELÉN MD Unavailable Unavailable PARNES, Z BELÉN MD Unavailable Unavailable PARNES, Z BELÉN MD Unavailable Unavailable PARNES, Z BELÉN MD Unavailable Unavailable PARNES, Z BELÉN MD Unavailable Unavailable PARNES, Z BELÉN MD Unavailable Unavailable PARNES, Z BELÉN MD Unavailable Unavailable PARNES, Z BELÉN MD Unavailable Unavailable PARNES, Z BELÉN MD Unavailable Unavailable PARNES, Z BELÉN MD Unavailable Unavailable PARNES, Z BELÉN MD Unavailable Unavailable PARNES, Z BELÉN MD Unavailable Unavailable PARNES, Z BELÉN MD Unavailable Unavailable PARNES, Z BELÉN MD Unavailable Unavailable PARNES, Z BELÉN MD Unavailable Unavailable PARNES, Z BELÉN MD Unavailable Unavailable PARNES, Z BELÉN MD Unavailable Unavailable PARNES, Z BELÉN MD Unavailable Unavailable PARNES, Z BELÉN MD Unavailable Unavailable ROBL, L RONNY COMMISSARY MANAGER Unavailable Unavailable ROBL, L RONNY COMMISSARY MANAGER Unavailable Unavailable ROBL, L RONNY COMMISSARY MANAGER Unavailable Unavailable ROBL, L RONNY COMMISSARY MANAGER Unavailable Unavailable ROBL, L RONNY COMMISSARY MANAGER Unavailable Unavailable ROBL, L RONNY COMMISSARY MANAGER Unavailable Unavailable ROBL, L RONNY COMMISSARY MANAGER Unavailable Unavailable ROBL, L RONNY COMMISSARY MANAGER Unavailable Unavailable ROBL, L RONNY COMMISSARY MANAGER Unavailable Unavailable ROBL, L RONNY COMMISSARY MANAGER Unavailable Unavailable ROBL, L RONNY COMMISSARY MANAGER Unavailable Unavailable ROBL, L RONNY COMMISSARY MANAGER Unavailable Unavailable ROBL, L RONNY COMMISSARY MANAGER Unavailable Unavailable ROBL, L RONNY COMMISSARY MANAGER Unavailable Unavailable ROBL, L RONNY COMMISSARY MANAGER Unavailable Unavailable ROBL, L RONNY COMMISSARY MANAGER Unavailable Unavailable Re-disclosure Warning The records that you are about to access may contain information from federally-assisted alcohol or drug abuse programs. If such information is present, then the following federally mandated warning applies: This information has been disclosed to you from records protected by federal confidentiality rules (42 CFR part 2). The federal rules prohibit you from making any further disclosure of this information unless further disclosure is expressly permitted by the written consent of the person to whom it pertains or as otherwise permitted by 42 CFR part 2. A general authorization for the release of medical or other information is NOT sufficient for this purpose. The Federal rules restrict any use of the information to criminally investigate or prosecute any alcohol or drug abuse patient.The records that you are about to access may contain highly sensitive health information, the redisclosure of which is protected by Article 27-F of the [facility] Public Health law. If you continue you may have access to information: Regarding HIV / AIDS; Provided by facilities licensed or operated by the [facility] Office of Mental Health; or Provided by the [facility] Office for People With Developmental Disabilities. If such information is present, then the following [facility] mandated warning applies: This information has been disclosed to you from confidential records which are protected by state law. State law prohibits you from making any further disclosure of this information without the specific written consent of the person to whom it pertains, or as otherwise permitted by law. Any unauthorized further disclosure in violation of state law may result in a fine or custodial sentence or both. A general authorization for the release of medical or other information is NOT sufficient authorization for further disc losure. Allergies and Adverse Reactions Type Description Substance Reaction Status Data Source(s ) No Known Drug Allergies No Known Drug Allergies [facility] Family History Family Member Name Family Member Gender Family Member Status Date o f Status Description Data Source(s) Unknown Male Problem [facility] ([facility]) Unknown Male Problem [facility] ([facility]) Unknown Unknown Problem [facility] ([facility]) Encounters Encounter Providers Location Date Indications Data Source(s ) Outpatient Attender: Chase Dong MDReferrer: Esther [email or web address] 09/27/2020 12:00:00 AM [facility] Outpatient Attender: BELÉN SOL MDConsultant: RONNY WEISS NP 09/07/2020 11:19:00 AM [facility] - 09/07/2020 11:19:[address] [facility] Outpatient Attender: Uri Fleming NP Family Practice 09/07/2020 1 0:20:00 AM EST [facility] ([facility]) Outpatient Attender: Jose BATEMAN Family Medicine [facility] 07/16/2020 07:40:00 AM EST [facility] ([facility]) Outpatient Attender: Jose BATEMAN Family Medicine [facility] 05/14/2020 09:00:00 AM EDT [facility] ([facility]) Outpatient Attender: Jose BATEMAN Family Medicine [facility] 04/12/2020 10:40:00 AM EDT [facility] ([facility]) Outpatient Attender: Jose BATEMAN Family Medicine [facility] 03/12/2020 11:20:00 AM EDT [facility] ([facility]) Outpatient Attender: Jose BATEMAN Family Medicine [facility] 02/10/2020 11:20:00 AM EDT [facility] ([facility]) Outpatient Attender: Jose BATEMAN Family Medicine [facility] 01/09/2020 01:20:00 PM EDT [facility] ([facility]) Outpatient Attender: Jose BATEMAN Family Medicine [facility] 12/08/2019 02:00:00 PM EDT [facility] ([facility]) Medications Medication Brand Name Start Date Product Form Dose Route Admi nistrative Instructions Pharmacy Instructions Status Indications Reaction Description Data Source(s) Phentermine Hydrochloride 30 MG Oral Capsule Phentermine HCL 07/16/2020 12:00:00 AM EST ORAL active [facility] ([facility]) Phentermine Hydrochloride 37.5 MG Oral Capsule Phentermine H CL 12/08/2019 12:00:00 AM EDT ORAL active M [facility]ENT ([facility]) Insurance Providers Payer name Policy type / Coverage type Policy ID Covered libertarian ID Covered libertarian's relationship to chino Policy [place] Plan Information BCBS OF JANNA NIELSEN [id number] COMMERCIAL GENERIC [id number] COMMERCIAL GENERIC [id number] [facility] [id number] [id number] Family Depen dent [id number] [employer] [id number] Family Depen dent [id number] [employer] [id number] Family Depen dent [id number] [employer] [id number] Family Depen dent [id number] [employer] [id number] Family Depen dent [id number] [employer] [id number] Family Depen dent [id number] [employer] [id number] Family Depen dent [id number] [employer] [id number] Family Depen dent [id number] [employer] B [id number] P [id number] 'S ADMINISTRATION [id number] SP [id number] [employer] [id number] Family Depen dent [id number] [employer] [id number] Family Depen dent [id number] [employer] [id number] Family Depen dent [id number] [employer] [id number] Family Depen dent [id number] [facility] CHOICE [id number] SP [id number] [employer] [id number] Family Depen dent [id number] [employer] [id number] Family Depen dent [id number] [employer] OF [place] 306/806 [id number] SP [id number] [employer] CHOICE PROGRAM O [id number] S [id number] [facility] CHOICE [id number] SP [id number] 'S ADMINISTRATION [id number] SP [id number] [employer]ICE PROGRAM O [id number] S [id number] [employer] FEDERAL [id number] SP [id number] 'S ADMINISTRATION [id number] SP [id number] OTHER B [id number] Self [id number] [employer] [facility] [id number] SP [id number] 's Choice Program Commercial Self [facility]ETERANS CHOICE PROGRAM - CLINIC [id number] 18 [id number] [facility] IMPROVE. [place] P [id number] S [id number] SP [id number] [place] [facility] [place] P [id number] S [id number] BS [place] FEDERAL [id number] SP [id number]/136E [id number] SP [id number] [facility] BLUE [facility] [id number] Problems, Conditions, and Diagnoses Code Display Name Description Problem Type Effective Dates Data Source(s) R07.89 Chest discomfort Chest discomfort [id number] 09/22/2020 12 :00:[address] [facility] [id number] Acquired trigger finger Acquired trigger finger Proble m 09/07/2020 12:00:00 AM EST [facility] ([facility]) R07.89 Other chest pain Other chest pain Diagnosis 09/27/2020 10 :50:[address] [facility] Surgeries/Procedures Procedure Description Date Indications Data Source(s) ECG ROUTINE ECG W/LEAST 12 LDS W/I&R POCT AMB EKG Routine 09/27/2020 11:58 AM EST Chest discomfort 09/27/2020 04:58:00 PM EST Chest discomfort [facility] Chest discomfort Social History Code Duration Value Status Description Data Source(s ) Alcohol intake 09/27/2020 12:00:00 AM EST Not Currently completed [facility] Smoking 09/27/2020 12:00:00 AM EST Never smoker completed Never s moker [facility] Smoking 07/16/2020 12:00:00 AM EST Patient has never smoked co mpleted Patient has never smoked [facility] ([facility]) Vital Signs ID Date Data Source UNK Name Value Range Interpretation Code Description Data Source(s) Oxygen saturation in Arterial blood by Pulse oximetry 99 % 99 % [facility] Body mass index (BMI) [Ratio] 25.02 kg/m2 25.02 kg/m2 [facility] Body weight 70.[address] [facility] Body height 167.[address] [facility] Diastolic blood pressure 70 mm[Hg] 70 mm[Hg] [facility] Systolic blood pressure 108 mm[Hg] 108 mm[Hg] [facility] Body temperature 97.2 [degF] 97.2 [degF] [facility] ([facility]) [place] body weight 125 [lb_av] 125 [lb_av] MEDEN T ([facility]) Oxygen saturation in Arterial blood by Pulse oximetry 99 % 99 % [facility] ([facility]) Body temperature 98.2 [degF] 98.2 [degF] [facility] ([facility]) Respiratory rate 18 /min 18 /min [facility] ( [facility]) Heart rate 92 /min 92 /min [facility] ([facility]) Body mass index (BMI) [Ratio] 28.2 kg/m2 28.2 k g/m2 [facility] ([facility]) Body weight 172.00 [lb_av] 172.00 [lb_av] MED[facility] T ([facility]) Body height 65.5 [in_i] 65.5 [in_i] [facility] ([facility]) 5'5.50" Diastolic blood pressure 64 mm[Hg] 64 mm[Hg] [facility] ([facility]) Systolic blood pressure 112 mm[Hg] 112 mm[Hg] M [facility] ([facility]) [place] body weight 125 [lb_av] 125 [lb_av] MED[facility] T ([facility]) Oxygen saturation in Arterial blood by Pulse oximetry 99 % 99 % [facility] ([facility]) Body temperature 98.4 [degF] 98.4 [degF] [facility] ([facility]) Respiratory rate 18 /min 18 /min [facility] ( [facility]) Heart rate 80 /min 80 /min [facility] ([facility]) Body mass index (BMI) [Ratio] 28.0 kg/m2 28.0 k g/m2 [facility] ([facility]) Body weight 171.12 [lb_av] 171.12 [lb_av] [facility] T ([facility]) Body height 65.5 [in_i] 65.5 [in_i] [facility] ([facility]) 5'5.50" Diastolic blood pressure 68 mm[Hg] 68 mm[Hg] [facility] ([facility]) Systolic blood pressure 116 mm[Hg] 116 mm[Hg] M [facility] ([facility]) Oxygen saturation in Arterial blood by Pulse oximetry 98 % 98 % [facility] ([facility]) Body temperature 98.0 [degF] 98.0 [degF] [facility] ([facility]) Respiratory rate 18 /min 18 /min [facility] ( [facility]) Heart rate 95 /min 95 /min [facility] ([facility]) Body mass index (BMI) [Ratio] 28.0 kg/m2 28.0 k g/m2 [facility] ([facility]) Body weight 171.00 [lb_av] 171.00 [lb_av] [facility] T ([facility]) Body height 65.5 [in_i] 65.5 [in_i] [facility] ([facility]) 5'5.50" Diastolic blood pressure 70 mm[Hg] 70 mm[Hg] [facility] ([facility]) Systolic blood pressure 118 mm[Hg] 118 mm[Hg] M [facility] ([facility]) Oxygen saturation in Arterial blood by Pulse oximetry 99 % 99 % [facility] ([facility]) Body temperature 97.8 [degF] 97.8 [degF] [facility] ([facility]) Respiratory rate 18 /min 18 /min [facility] ( [facility]) Heart rate 93 /min 93 /min [facility] ([facility]) Body mass index (BMI) [Ratio] 28.3 kg/m2 28.3 k g/m2 [facility] ([facility]) Body weight 173.00 [lb_av] 173.00 [lb_av] [facility] T ([facility]) Body height 65.5 [in_i] 65.5 [in_i] [facility] " Diastolic blood [facility] 72 mm[Hg] 72 mm[facility]Hg[facility] Systolic blood pressure 122 mm[Hg] 122 mm[Hg] M [facility] ([facility]) Body mass index (BMI) [Ratio] 28.5 kg/m2 28.5 k g/m2 [facility] ([facility]) Body weight 174.00 [lb_av] 174.00 [lb_av] MEDEN T ([facility]) Body height 65.5 [in_i] 65.5 [in_i] MEDENT ([facility]) " Body mass index (BMI) [Ratio] 29.0 kg/m2 29.0 k g/m2 [facility] ([facility]) Body weight 177.12 [lb_av] 177.12 [lb_av] MED T ([facility]) Body height 65.5 [in_i] 65.5 [in_i] MEDENT ([facility]) " Body mass index (BMI) [Ratio] 30.3 kg/m2 30.3 k g/m2 [facility] ([facility]) Body weight 185.12 [lb_av] 185.12 [lb_av] MED T ([facility]) Body height 65.5 [in_i] 65.5 [in_i] MEDENT ([facility]) "
[2020-10-16 15:56] LABS: BASO # 0.1 10^3/uL (0.0-0.2); BASO % 0.7 % (0.0-1.0); EOS # 0.1 10^3/uL (0.0-0.5); EOS % 0.8 % (0.0-3.0); HEMATOCRIT 41.1 % (36.0-47.0); HEMOGLOBIN 13.7 g/dl (12.0-15.5); LYMPH % 23.7 % (24.0-44.0); MEAN CORPUSCULAR HEMOGLOBIN 29.1 pg (27.0-33.0); MEAN CORPUSCULAR HGB CONC 33.3 g/dl (32.0-36.5); MEAN CORPUSCULAR VOLUME 87.4 fl (80.0-96.0); MONO # 0.4 10^3/uL (0.0-0.8); MONO % 5.3 % (2.0-8.0); NEUTROPHILS # 5.7 10^3/uL (1.5-8.5); NEUTROPHILS % 69.3 % (36.0-66.0); PLATELET COUNT, AUTOMATED 273 10^3/uL (150-450); WHITE BLOOD COUNT 8.3 10^3/uL (4.0-10.0)
[2020-10-16] MEDS ORDERED: ONDANSETRON 4MG/2ML VIAL IV ONE (16:00)
[2020-10-16] MEDS ORDERED: KETOROLAC 30 MG/ML 1ML VIAL IV ONE (16:00)
[2020-10-16] MEDS ORDERED: NS 1,000 ML IV ONE (16:15)
[2020-10-16 16:21] LABS: ALBUMIN 4.6 GM/DL (3.2-5.2); ALT/SGPT 34 U/L (12-78); BILIRUBIN,DIRECT 0.1 MG/DL (0.0-0.2); BILIRUBIN,TOTAL 0.5 MG/DL (0.2-1.0); BLOOD UREA NITROGEN 14 MG/DL (7-18); CALCIUM LEVEL 9.8 MG/DL (8.5-10.1); CARBON DIOXIDE LEVEL 23 MEQ/L (21-32); CHLORIDE LEVEL 104 MEQ/L (98-107); CREATININE FOR GFR 0.88 MG/DL (0.55-1.30); GLOMERULAR FILTRATION RATE > 60.0 (>58); GLUCOSE, FASTING 138 MG/DL (70-100); LIPASE 100 U/L (73-393); POTASSIUM SERUM 3.8 MEQ/L (3.5-5.1); SODIUM LEVEL 139 MEQ/L (136-145); TOTAL PROTEIN 7.6 GM/DL (6.4-8.2)
--- OUTSIDE RECORDS SUMMARY | 2020-10-16 16:24 | CCD ---
Author Author [facility] Organization [facility] Address Unknown Phone Unavailable Care Team Providers Care Commercial Administrator Name Role Phone Ornelas, C Evelyn PA [...] Unavailable Ornelas, C Evelyn PA Unavailable Unavailable SleArnulfo kelleyjtech Unavailable Unavailable SlemanpreetkaArnulfojtech Unavailable Unavailable SlemanpreetkaArnulfojtech Unavailable Unavailable SlemanpreetkaArnulfojtech Unavailable Unavailable Arnulfo Dongjtech Unavailable Unavailable SlemanpreetkaArnulfojtech Unavailable Unavailable SlemanpreetkaArnulfojtech Unavailable Unavailable SlemanpreetkaArnulfojtech Unavailable Unavailable SlemanpreetkaArnulfojtech Unavailable Unavailable SlemanpreetkaArnulfojtech Unavailable Unavailable SlemanpreetkaArnulfojtech Unavailable Unavailable SlemanpreetkaArnulfojtech Unavailable Unavailable SlemanpreetkaArnulfojtech Unavailable Unavailable Slezka Vojtech Unavailable Unavailable Slezka Vojtech Unavailable Unavailable SlezkaArnulfojtech Unavailable Unavailable SlezkaArnulfojtech Unavailable Unavailable SlemanpreetkaArnulfojtech Unavailable Unavailable SlemanpreetkaArnulfojtech Unavailable Unavailable SlezkaArnulfojtech Unavailable Unavailable Slezka Vojtech Unavailable Unavailable SlezkaArnulfojtech Unavailable Unavailable Slezka Vojtech Unavailable Unavailable SlezkaArnulfojtech Unavailable Unavailable SlemanpreetkaArnulfojtech Unavailable Unavailable SlezkaArnulfojtech Unavailable Unavailable Slezka, Vojtech Unavailable Unavailable SlemanpreetkaFrancktech Unavailable Unavailable SlezkaArnulfojtech Unavailable Unavailable SlezkaArnulfojtech Unavailable Unavailable SlezkaArnulfojtech Unavailable Unavailable SlezkaArnulfojtech Unavailable Unavailable SlezkaArnulfojtech Unavailable Unavailable SlezkaArnulfojtech Unavailable Unavailable SlezkaArnulfojtech Unavailable Unavailable SlezkaArnulfojtech Unavailable Unavailable SlezkaArnulfojtech Unavailable Unavailable SlezkaArnulfojtech Unavailable Unavailable SlezkaArnulfojtech Unavailable Unavailable SlezkaArnulfojtech Unavailable Unavailable SlezkaArnulfojtech Unavailable Unavailable SlezkaArnulfojtech Unavailable Unavailable SlezkaArnulfojtech Unavailable Unavailable SlezkaArnulfojtech Unavailable Unavailable SlezkaArnulfojtech Unavailable Unavailable SlezkaArnulfojtech Unavailable Unavailable SlezkaArnulfojtech Unavailable Unavailable SlezkaArnulfojtech Unavailable Unavailable SlemanpreetkaArnulfojtech Unavailable Unavailable SlemanpreetkaArnulfojtech Unavailable Unavailable SlezkaArnulfojtech Unavailable Unavailable SlezkaArnulfojtech Unavailable Unavailable SlezkaArnulfojtech Unavailable Unavailable SlezkaArnulfojtech Unavailable Unavailable SlemanpreetkaArnulfojtech Unavailable Unavailable SlemanpreetkaArnulfojtech Unavailable Unavailable SlezkaFrancktech Unavailable Unavailable SlezkaArnulfojtech MD Unavailable Unavailable Lonnie, D Uri INSTRUMENT MECHANIC Unavailable Unavailable Lonnie, D Uri INSTRUMENT MECHANIC Unavailable Unavailable Lonnie, D Uri INSTRUMENT MECHANIC Unavailable Unavailable Lonnie, D Uri INSTRUMENT MECHANIC Unavailable Unavailable Lonnie, D Uri INSTRUMENT MECHANIC Unavailable Unavailable Lonnie, D Uri INSTRUMENT MECHANIC Unavailable Unavailable Lonnie, D Uri INSTRUMENT MECHANIC Unavailable Unavailable Lonnie, D Uri INSTRUMENT MECHANIC Unavailable Unavailable Lonnie, D Uri INSTRUMENT MECHANIC Unavailable Unavailable Lonnie, D Uri INSTRUMENT MECHANIC Unavailable Unavailable Lonnie, D Uri INSTRUMENT MECHANIC Unavailable Unavailable Lonnie, D Uri INSTRUMENT MECHANIC Unavailable Unavailable Lonnie, D Uri INSTRUMENT MECHANIC Unavailable Unavailable Lonnie, D Uri INSTRUMENT MECHANIC Unavailable Unavailable Lonnie, D Uri INSTRUMENT MECHANIC Unavailable Unavailable Lonnie, D Uri INSTRUMENT MECHANIC Unavailable Unavailable Lonnie, D Uri INSTRUMENT MECHANIC Unavailable Unavailable Lonnie, D Uri INSTRUMENT MECHANIC Unavailable Unavailable Lonnie, D Uri INSTRUMENT MECHANIC Unavailable Unavailable Lonnie, D Uri INSTRUMENT MECHANIC Unavailable Unavailable Lonnie, D Uri INSTRUMENT MECHANIC Unavailable Unavailable Lonnie, D Uri INSTRUMENT MECHANIC Unavailable Unavailable Lonnie, D Uri INSTRUMENT MECHANIC Unavailable Unavailable Lonnie, D Uri INSTRUMENT MECHANIC Unavailable Unavailable Lonnie, D Uri INSTRUMENT MECHANIC Unavailable Unavailable Lonnie, D Uri INSTRUMENT MECHANIC Unavailable Unavailable Lonnie, D Uri INSTRUMENT MECHANIC Unavailable Unavailable Lonnie, D Uri INSTRUMENT MECHANIC Unavailable Unavailable Lonnie, D Uri INSTRUMENT MECHANIC Unavailable Unavailable Lonnie, D Uri INSTRUMENT MECHANIC Unavailable Unavailable Lonnie, D Uri INSTRUMENT MECHANIC Unavailable Unavailable Lonnie, D Uri INSTRUMENT MECHANIC Unavailable Unavailable Lonnie, D Uri INSTRUMENT MECHANIC Unavailable Unavailable Lonnie, D Uri INSTRUMENT MECHANIC Unavailable Unavailable Lonnie, D Uri INSTRUMENT MECHANIC Unavailable Unavailable Anthony, Jose PA Unavailable Unavailable [...] Unavailable Anthony, Jose PA Unavailable Unavailable Anthony, Joes PA Unavailable Unavailable Anthony, Jose PA Unavailable [...] Unavailable Unavailable Anthony, Jose PA Unavailable Unavailable PARNES, Z BELÉN MD Unavailable [...] BELÉN MD Unavailable Unavailable ROBL, L RONNY INSTRUMENT MECHANIC Unavailable Unavailable ROBL, L RONNY INSTRUMENT MECHANIC Unavailable Unavailable ROBL, L RONNY INSTRUMENT MECHANIC Unavailable Unavailable ROBL, L RONNY INSTRUMENT MECHANIC Unavailable Unavailable ROBL, L RONNY INSTRUMENT MECHANIC Unavailable Unavailable ROBL, L RONNY INSTRUMENT MECHANIC Unavailable Unavailable ROBL, L RONNY INSTRUMENT MECHANIC Unavailable Unavailable ROBL, L RONNY INSTRUMENT MECHANIC Unavailable Unavailable ROBL, L RONNY INSTRUMENT MECHANIC Unavailable Unavailable ROBL, L RONNY INSTRUMENT MECHANIC Unavailable Unavailable ROBL, L RONNY INSTRUMENT MECHANIC Unavailable Unavailable ROBL, L RONNY INSTRUMENT MECHANIC Unavailable Unavailable ROBL, L RONNY INSTRUMENT MECHANIC Unavailable Unavailable ROBL, L RONNY INSTRUMENT MECHANIC Unavailable Unavailable ROBL, L RONNY INSTRUMENT MECHANIC Unavailable Unavailable ROBL, L RONNY INSTRUMENT MECHANIC Unavailable Unavailable Re-disclosure Warning The records that [...] is protected by Article 27-F of the [facility] Public Health law. If you continue you may have access to information: Regarding HIV / AIDS; Provided by facilities licensed or operated by the [facility] Office of Mental Health; or Provided by the [facility] Office for People With Developmental Disabilities. If such information is present, then the following [facility] mandated warning applies: This information has been [...] law may result in a fine or mcc sentence or both. A general authorization for the release of medical or other information is NOT sufficient authorization for further disc losure. Allergies and Adverse Reactions Type Description Substance Reaction Status Data Source(s ) No Known Drug Allergies No Known Drug Allergies [facility] Family History Family Member Name Family Member Gender Family Member Status Date o f Status Description Data Source(s) Unknown Male Problem MEDENT ([facility]) Unknown Male Problem MEDENT ([facility]) Unknown Unknown Problem MEDENT ([facility]) Encounters Encounter Providers Location Date Indications Data Source(s ) Outpatient Attender: Chase Dong MDReferrer: Esther [email or web address] 09/27/2020 12:00:[address] [facility] [place] Outpatient Attender: BELÉN SOL MDConsultant: RONNY WEISS NP 09/07/2020 11:19:00 AM EST - 09/07/2020 11:19:00 AM EST [facility] Outpatient Attender: Uri Fleming NP Family Practice 09/07/2020 1 0:20:00 AM EST MEDENT ([facility]) Outpatient Attender: Jose BATEMAN Family Medicine [facility] 07/16/2020 07:40:00 AM EST MED[facility] ([facility]) Outpatient Attender: Jose BATEMAN Family Medicine [facility] 05/14/2020 09:00:00 AM EDT MEDENT ([facility]) Outpatient Attender: Jose BATEMAN Family Medicine [facility] 04/12/2020 10:40:00 AM EDT MEDENT ([facility]) Outpatient Attender: Jose BATEMAN Family Medicine [facility] 03/12/2020 11:20:00 AM EDT MED[facility] ([facility]) Outpatient Attender: Jose BATEMAN Family Medicine [facility] 02/10/2020 11:20:00 AM EDT MED[facility] ([facility]) Outpatient Attender: Jose BATEMAN Family Medicine [facility] 01/09/2020 01:20:00 PM EDT MED[facility] ([facility]) Outpatient Attender: Jose BATEMAN Family Medicine [facility] 12/08/2019 02:00:00 PM EDT MED[facility] ([facility]) Medications Medication Brand Name Start Date Product Form Dose Route Admi nistrative Instructions Pharmacy Instructions Status Indications Reaction Description Data Source(s) Phentermine Hydrochloride 30 MG Oral Capsule Phentermine HCL 07/16/2020 12:00:00 AM EST ORAL active MED[facility] ([facility]) Phentermine Hydrochloride 37.5 MG Oral Capsule Phentermine H CL 12/08/2019 12:00:00 AM EDT ORAL active M EDENT ([facility]) Insurance Providers Payer name Policy type / Coverage type Policy ID Covered democrat ID Covered democrat's relationship to chino Policy [place] Plan Information BCBS OF JANNA NIELSEN 306/[id number] COMMERCIAL GENERIC [id number] COMMERCIAL GENERIC [id number] Ines [id number] [employer] U/W Commercial [id number] Family Depen dent [id number] [employer] U/W Commercial [id number] Family Depen dent [id number] [employer] U/W Commercial [id number] Family Depen dent [id number] [employer] U/W Commercial [id number] Family Depen dent [id number] [employer] U/W Commercial [id number] Family Depen dent [id number] [employer] U/W Commercial [id number] Family Depen dent [id number] [employer] U/W Commercial [id number] Family Depen dent [id number] [employer] U/W Commercial [id number] Family Depen dent [id number] EXCELLUS BCBS B [id number] P [id number] 'S ADMINISTRATION [id number] SP [id number] [employer] U/W Commercial [id number] Family Depen dent [id number] [employer] U/W Commercial [id number] Family Depen dent [id number] [employer] U/W Commercial [id number] Family Depen dent [id number] [employer] U/W Commercial [id number] Family Depen dent [id number] [facility] [place] CHOICE [id number] SP [id number] [employer] U/W Commercial [id number] Family Depen dent [id number] [employer] U/W Commercial [id number] Family Depen dent [id number] BC[place] OF [place] 306/806 [id number] SP [id number] VETERANS CHOICE PROGRAM O [id number] S [id number] [facility] CHOICE [id number] SP [id number] 'S ADMINISTRATION [id number] SP [id number] [employer] CHOICE PROGRAM O [id number] S [id number] EXCELLUS BCBS FEDERAL [id number] SP [id number] 'S ADMINISTRATION [id number] SP [id number] OTHER B [id number] Self [id number] MIRANDA [employer], [facility] [id number] SP [id number] [place]'s Choice Program Commercial Self VET[facility]ANS CHOICE PROGRAM - CLINIC [id number] 18 [id number] [facility] IMPROVE. GILMAAGU P [id number] S [id number] SP [id number] [facility] P [id number] S [id number] BS [place] FEDERAL [id number] SP [id number]/136E [id number] SP [id number] [facility] [id number] Problems, Conditions, and Diagnoses Code Display Name Description Problem Type Effective Dates Data Source(s) R07.89 Chest discomfort Chest discomfort [id number] 09/22/2020 12 :00:[address] [facility] [place] [id number] Acquired trigger finger Acquired trigger finger Proble m 09/07/2020 12:00:00 AM EST MEDENT ([facility]) R07.89 Other chest pain Other chest pain Diagnosis 09/27/2020 10 :50:[address] [facility] [place] Surgeries/Procedures Procedure Description Date Indications Data Source(s) ECG ROUTINE ECG W/LEAST 12 LDS W/I&R POCT AMB EKG Routine 09/27/2020 11:58 AM EST Chest discomfort 09/27/2020 04:58:00 PM EST Chest discomfort [facility] [place] Chest discomfort Social History Code Duration Value Status Description Data Source(s ) Alcohol intake 09/27/2020 12:00:00 AM EST Not Currently completed [facility] [place] Smoking 09/27/2020 12:00:00 AM EST Never smoker completed Never s moker [facility] Smoking 07/16/2020 12:00:00 AM EST Patient has never smoked co mpleted Patient has never smoked MEDENT ([facility]) Vital Signs ID Date Data Source UNK Name Value Range Interpretation Code Description Data Source(s) Oxygen saturation in Arterial blood by Pulse oximetry 99 % 99 % [facility] [place] Body mass index (BMI) [Ratio] 25.02 kg/m2 25.02 kg/m2 [facility] [place] Body weight 70.[address] [facility] [place] Body height 167.[address] [facility] [place] Diastolic blood pressure 70 mm[Hg] 70 mm[Hg] [facility] Systolic blood pressure 108 mm[Hg] 108 mm[Hg] [facility] Body temperature 97.2 [degF] 97.2 [degF] MEDENT ([facility]) Patrick body weight 125 [lb_av] 125 [lb_av] MEDEN T ([facility]) Oxygen saturation in Arterial blood by Pulse oximetry 99 % 99 % [facility] ([facility]) Body temperature 98.2 [degF] 98.2 [degF] [facility] ([facility]) Respiratory rate 18 /min 18 /min MED[facility] ( [facility]) Heart rate 92 /min 92 /min MED[facility] ([facility]) Body mass index (BMI) [Ratio] 28.2 kg/m2 28.2 k g/m2 [facility] ([facility]) Body weight 172.00 [lb_av] 172.00 [lb_av] MEDEN T ([facility]) Body height 65.5 [in_i] 65.5 [in_i] MEDENT ([facility]) 5'5.50" Diastolic blood pressure 64 mm[Hg] 64 mm[Hg] MEDENT ([facility]) Systolic blood pressure 112 mm[Hg] 112 mm[Hg] M EDENT ([facility]) Patrick body weight 125 [lb_av] 125 [lb_av] MEDEN T ([facility]) Oxygen saturation in Arterial blood by Pulse oximetry 99 % 99 % [facility] ([facility]) Body temperature 98.4 [degF] 98.4 [degF] [facility] ([facility]) Respiratory rate 18 /min 18 /min MED[facility] ( [facility]) Heart rate 80 /min 80 /min [facility] ([facility]) Body mass index (BMI) [Ratio] 28.0 kg/m2 28.0 k g/m2 [facility] ([facility]) Body weight 171.12 [lb_av] 171.12 [lb_av] MEDEN T ([facility]) Body height 65.5 [in_i] 65.5 [in_i] MEDENT ([facility]) 5'5.50" Diastolic blood pressure 68 mm[Hg] 68 mm[Hg] [facility] ([facility]) Systolic blood pressure 116 mm[Hg] 116 mm[Hg] M EDENT ([facility]) Oxygen saturation in Arterial blood by Pulse oximetry 98 % 98 % [facility] ([facility]) Body temperature 98.0 [degF] 98.0 [degF] [facility] ([facility]) Respiratory rate 18 /min 18 /min [facility] ( [facility]) Heart rate 95 /min 95 /min [facility] ([facility]) Body mass index (BMI) [Ratio] 28.0 kg/m2 28.0 k g/m2 [facility] ([facility]) Body weight 171.00 [lb_av] 171.00 [lb_av] MEDEN T ([facility]) Body height 65.5 [in_i] 65.5 [in_i] MEDENT ([facility]) 5'5.50" Diastolic blood pressure 70 mm[Hg] 70 mm[Hg] [facility] ([facility]) Systolic blood pressure 118 mm[Hg] 118 mm[Hg] M EDENT ([facility]) Oxygen saturation in Arterial blood by Pulse oximetry 99 % 99 % [facility] ([facility]) Body temperature 97.8 [degF] 97.8 [degF] [facility] ([facility]) Respiratory rate 18 /min 18 /min [facility] ( [facility]) Heart rate 93 /min 93 /min [facility] ([facility]) Body mass index (BMI) [Ratio] 28.3 kg/m2 28.3 k g/m2 [facility] ([facility]) Body weight 173.00 [lb_av] 173.00 [lb_av] MEDEN T ([facility]) Body height 65.5 [in_i] 65.5 [in_i] [facility] ([facility]) " Diastolic blood pressure 72 mm[Hg] 72 mm[Hg] [facility] ([facility]) Systolic blood pressure 122 mm[Hg] 122 mm[Hg] M EDENT ([facility]) Body mass index (BMI) [Ratio] 28.5 kg/m2 28.5 k g/m2 [facility] ([facility]) Body weight 174.00 [lb_av] 174.00 [lb_av] MEDEN T ([facility]) Body height 65.5 [in_i] 65.5 [in_i] [facility] ([facility]) " Body mass index (BMI) [Ratio] 29.0 kg/m2 29.0 k g/m2 [facility] ([facility]) Body weight 177.12 [lb_av] 177.12 [lb_av] MEDEN T ([facility]) Body height 65.5 [in_i] 65.5 [in_i] [facility] ([facility]) " Body mass index (BMI) [Ratio] 30.3 kg/m2 30.3 k g/m2 [facility] ([facility]) Body weight 185.12 [lb_av] 185.12 [lb_av] MEDEN T ([facility]) Body height 65.5 [in_i] 65.5 [in_i] MEDENT ([facility]) "
[2020-10-16 16:49] LABS: GLUCOSE, URINE (UA) MANUAL NEGATIVE (NEGATIVE); KETONE, URINE MANUAL 3+ mg/dL (NEGATIVE)
[2020-10-16 16:50] LABS: BILIRUBIN, URINE MANUAL OBSCURED (NEGATIVE); UROBILINOGEN, URINE MANUAL OBSCURED mg/dl (NORMAL)
[2020-10-16] MEDS ORDERED: ISOVUE-370 76% 100ML VIAL As Ordered ONE (16:59)
[2020-10-16 17:08] LABS: BACTERIA, URINE SMALL AMOUNT; CALCIUM OXALATE CRYSTALS,URINE LARGE AMOUNT /hpf; SQUAMOUS EPITHELIAL CELL URINE SMALL AMOUNT /hpf (SMALL AMT)
[2020-10-16 17:09] LABS: HYALINE CAST, URINE NONE SEEN /lpf (0-1); MUCUS, URINE MOD AMOUNT (NEGATIVE)
--- NOTE | 2020-10-16 18:22 | REPVR ---
PROCEDURE INFORMATION: Exam: CT Abdomen And Pelvis With Contrast Exam date and time: 10/16/2020 5:39 PM Age: 44 years old Clinical indication: Abdominal pain; Localized; Right lower quadrant (rlq); Additional info: Rlq pain TECHNIQUE: Imaging protocol: Computed tomography of the abdomen and pelvis with contrast. Radiation optimization: All CT scans at this facility use at least one of these dose optimization techniques: automated exposure control; mA and/or kV adjustment per patient size (includes targeted exams where dose is matched to clinical indication); or iterative reconstruction. Contrast material: ISOVUE 370; Contrast volume: 100 ml; Contrast route: INTRAVENOUS (IV); COMPARISON: No relevant prior studies available. FINDINGS: Liver: 8 mm cyst in the left hepatic lobe. 7 mm cyst in the right hepatic lobe. Gallbladder and bile ducts: Normal. No calcified stones. No ductal dilation. Pancreas: Normal. No ductal dilation. Spleen: Normal. No splenomegaly. Adrenal glands: Normal. No mass. Kidneys and ureters: There is 3 mm obstructing calculus in the distal right ureter with the right hydronephrosis and hydroureter. Small amount of free fluid in the pelvis. Stomach and bowel: Unremarkable. No obstruction. No mucosal thickening. Appendix: No evidence of appendicitis. Intraperitoneal space: See "Kidneys and ureters" finding. Vasculature: Unremarkable. No abdominal aortic aneurysm. Lymph nodes: Unremarkable. No enlarged lymph nodes. Urinary bladder: Unremarkable as visualized. Reproductive: Unremarkable as visualized. Bones/joints: Grade 1 anterolisthesis of L5 over S1. Soft tissues: Bilateral breast implants. IMPRESSION: Obstructing calculus in the distal right ureter measuring 3 mm with the right hydronephrosis and proximal hydroureter. Electronically signed by: Luigi Sanchez On 10/16/2020 18:22:29 PM
[2020-10-16] MEDS ORDERED: KETO10TAB PO (18:37)
[2020-10-16] MEDS ORDERED: FLOM0.4C39 PO (18:38)
[2020-10-16] MEDS ORDERED: ZOFR4TAB16 PO (19:02)
[2020-10-16 19:29] VITALS: BP 137/80
== END 2020-10-16 19:30 | disposition home or self-care (01) ==
LOC: M ED 15:10
DX: N20.9 Urinary calculus, unspecified (principal); N20.0 Calculus of kidney; Z79.899 Other long term (current) drug therapy; Z88.1 Allergy status to other antibiotic agents
CPT/HCPCS: 74177; 80048; 80076; 81000; 83690; 84702; 85025; 87086; 99284; J1885; J2405; Q9967

== ENCOUNTER → 2020-10-30 | Outpatient (CLI) | payer BC ==
[~2020-10-30] MED LIST changes: +FLOM0.4C39 PO; +KETO10TAB PO; +ZOFR4TAB16 PO
--- NOTE | 2020-10-31 07:16 | REP ---
INDICATION: RENAL CALCULI COMPARISON: 10/16/2020 TECHNIQUE: Axial noncontrast images from the lung bases to the pubic symphysis with coronal and sagittal reformations. This CT examination was performed using the following dose reduction techniques: Automated exposure control, adjustment of mA and/or kv according to the patient's size, and use of iterative reconstruction technique. FINDINGS: Lung bases are clear. Visualized heart and pericardium normal. Liver, spleen, pancreas, gallbladder, bilateral adrenal glands and kidneys are normal. Previous hydronephrosis and obstructing right ureteral calculus has resolved. The enteric system is unremarkable and without obstruction or acute inflammatory process. Normal terminal ileum and appendix identified in the right lower quadrant. Pelvis demonstrates normal bladder and age-appropriate uterus/adnexa. No ascites. No free air. No adenopathy. No focal inflammatory stranding. Abdominal aorta without aneurysm. Musculoskeletal structures are intact and without acute osseous abnormality. IMPRESSION: No acute abdominopelvic pathology appreciated. Previous right-sided obstructive uropathy with distal ureteral calculus resolved. <Electronically signed by Dino Medrano > 10/31/20 [id number]
== END ==
LOC: M RAD 18:11
PROVIDERS: ATTEND Urology
DX: N20.0 Calculus of kidney (principal)

== ENCOUNTER → 2020-11-28 | Outpatient (REF) | payer OTHER ==
[2020-11-28 14:01] LABS: ALBUMIN 4.2 GM/DL (3.2-5.2); ALT/SGPT 23 U/L (12-78); BILIRUBIN,DIRECT 0.1 MG/DL (0.0-0.2); BILIRUBIN,TOTAL 0.4 MG/DL (0.2-1.0); HEPATITIS B SURFACE ANTIBODY POSITIVE (POSITIVE); TOTAL PROTEIN 7.5 GM/DL (6.4-8.2)
[2020-11-28 14:09] LABS: HEPATITIS B SURFACE ANTIGEN NEGATIVE (NEGATIVE)
[2020-11-28 14:37] LABS: HEPATITIS C VIRUS ABY INDEX < 0.0 INDEX (<0.8)
[2020-11-29 20:07] LABS: ANA (HEP2) Negative (.); ANTI CENTROMERE ANTIBODY <0.2 AI (0.0-0.9); ANTI SCLERODERMA ANTIBODIES <0.2 AI (0.0-0.9); ANTI-MITOCHONDRIAL ANTIBODY <20.0 Units (0.0-20.0); ANTI-SMOOTH MUSCLE ANTIBODY 7 Units (0-19); HEPATITIS B CORE ANTIBODY IGG Negative (Negative)
== END ==
LOC: M SFHCRHEU 10:07
PROVIDERS: ATTEND Internal Medicine
DX: Z11.59 Encounter for screening for other viral diseases (principal); R76.8 Other specified abnormal immunological findings in serum
CPT/HCPCS: 80076; 86038; 86235; 86255; 86704; 86706; 86803; 87340; G0463

== ENCOUNTER → 2020-12-18 | Outpatient (CLI) | payer OTHER ==
--- NOTE | 2020-12-18 08:45 | REP ---
INDICATION: HX OF ALCOHOL USE. FINDINGS: Multiple ultrasonographic images of the liver show the hepatic parenchymal echo texture to appear unremarkable. There are no focal masses. There is no intrahepatic ductal dilatation. The common bile duct measures approximately 5 mm in its greatest transverse dimension. Multiple ultrasonographic images of the gallbladder show no focal or diffuse gallbladder wall thickening. There are no echogenic foci within the gallbladder lumen, which casts acoustic shadows. There is no pericholecystic edema. Images of the pancreatic region show no gross abnormality. The imaged portion of the right kidney is unremarkable. IMPRESSION: Unremarkable right upper quadrant ultrasound. Accredited by the [employer] in General Ultrasound. <Electronically signed by Aristeo Acosta > 12/18/20 0844
== END ==
LOC: M RAD 07:49
PROVIDERS: ATTEND Internal Medicine
DX: Z87.898 Personal history of other specified conditions (principal)

== ENCOUNTER → 2021-01-28 | Outpatient (CLI) | payer OTHER ==
--- NOTE | 2021-01-29 12:36 | REPMRS ---
Patient History The patient states she has not had a clinical breast exam in over a year. Patient had first child at age 32. No known family history of cancer. Retro-pectoral silicone gel implants in both breasts. Tomosynthesis is performed. Volpara breast density is d. Eddie[place]Chel[place] lifetime risk of breast cancer 13.2%. Patient states no breast complaints. Patient has signed the MRS history sheet and the mammography with breast implants consent form. Digital Woman Screen Mammo: January 28, 2021 - Exam #: [id number] Bilateral MLO, CC, CCID, and MLOID view(s) were taken. Technologist: Deidra Blanco, Technologist Prior study comparison: February 09, 2018, bilateral digital mammo screening bilat, performed at [facility]. FINDINGS: The breast tissue is heterogeneously dense. This may lower the sensitivity of mammography. There has been no change in the appearance of the mammogram from the prior studies. There is a moderate amount of residual fibroglandular tissue which is fairly symmetric. There is no interval development of dominant mass, areas of architectural distortion, or clustered microcalcification typical of malignancy. Bilateral breast implants appear grossly intact. No significant changes when compared with prior studies. Assessment: BI-RADS/ACR category 1 mammogram. Negative Mammogram. Recommendation Routine screening mammogram in 1 year (for women over age 40). This mammogram was interpreted with the aid of an FDA-approved computer-aided dectection system. Electronically Signed By: Demetrio Pollack MD 01/29/21 [id number]
== END ==
LOC: M WHC 16:32
PROVIDERS: ATTEND Physician Assistant Medical
DX: Z12.31 Encounter for screening mammogram for malignant neoplasm of breast (principal); Z98.82 Breast implant status

== ENCOUNTER → 2021-04-08 | Outpatient (REF) | payer OTHER | LOC: M LAB REF 16:38 | PROVIDERS: ATTEND Podiatrist Foot & Ankle Surgery | DX: L03.031 Cellulitis of right toe (principal) ==

== ENCOUNTER → 2022-03-25 | Outpatient (CLI) | payer OTHER | LOC: M WHC 06:31 | PROVIDERS: ATTEND Physician Assistant Medical | DX: Z12.31 Encounter for screening mammogram for malignant neoplasm of breast (principal); R92.8 Other abnormal and inconclusive findings on diagnostic imaging of breast; Z98.82 Breast implant status ==

== ENCOUNTER → 2022-04-09 | Outpatient (CLI) | payer OTHER | LOC: M WHC 07:50 | PROVIDERS: ATTEND Physician Assistant Medical | DX: Z12.31 Encounter for screening mammogram for malignant neoplasm of breast (principal); R92.8 Other abnormal and inconclusive findings on diagnostic imaging of breast | CPT/HCPCS: 77065; G0279 ==

== ENCOUNTER → 2023-05-13 | Outpatient (CLI) | payer OTHER | LOC: M WHC 07:25 | PROVIDERS: ATTEND Physician Assistant Medical | DX: Z12.31 Encounter for screening mammogram for malignant neoplasm of breast (principal); Z98.82 Breast implant status ==

== ENCOUNTER 2024-02-19 11:59 | Emergency (ER) | payer OTHER ==
[~2024-02-19] VITALS: Ht 167.6 cm; Wt 85.9 kg
[2024-02-19] MEDS ORDERED: TIRZ5PEN3 SQ (12:11)
[2024-02-19] MEDS: NORCO, ANEXSIA 5/325MG TABLET (HYDROcodone/ACETAMINOPHEN) PO ONE ×2 (14:31→19:43)
[2024-02-19] MEDS: KETOROLAC 30 MG/ML 1ML VIAL IV ONE (16:12)
[2024-02-19] MEDS: ONDANSETRON 4MG 2ML VIAL IV ONE ×2 (16:12→19:42)
[2024-02-19 16:18] LABS: HEMATOCRIT 41.7 % (36.0-47.0); HEMOGLOBIN 14.2 g/dl (12.0-15.5); MEAN CORPUSCULAR HEMOGLOBIN 29.6 pg (27.0-33.0); MEAN CORPUSCULAR HGB CONC 34.1 g/dl (32.0-36.5); MEAN CORPUSCULAR VOLUME 87.1 fl (80.0-96.0); PLATELET COUNT, AUTOMATED 293 10^3/uL (150-450); RED BLOOD COUNT 4.79 10^6/uL (4.00-5.40); WHITE BLOOD COUNT 7.8 10^3/uL (4.0-10.0)
[2024-02-19 16:24] LABS: ERYTHROCYTE SEDIMENTATION RATE 6 mm/hr (0-20)
[2024-02-19 16:49] LABS: C REACTIVE PROTEIN QUANTITATIV < 0.40 MG/DL (<1.0)
[2024-02-19 16:50] LABS: BLOOD UREA NITROGEN 12 MG/DL (9-23); CALCIUM LEVEL 9.2 MG/DL (8.5-10.1); CARBON DIOXIDE LEVEL 28 MMOL/L (20-31); CHLORIDE LEVEL 106 MMOL/L (98-107); CREATININE FOR GFR 0.79 MG/DL (0.55-1.30); GLOMERULAR FILTRATION RATE > 60.0 (>58); GLUCOSE, FASTING 90 MG/DL (60-100); POTASSIUM SERUM 4.4 MMOL/L (3.5-5.1); SODIUM LEVEL 137 MMOL/L (136-145)
[2024-02-19 18:07] VITALS: BP 128/73; TEMP 95.7; O2SAT 98
[2024-02-19] MEDS ORDERED: traMADol 50 MG TAB PO ONE (19:10)
[2024-02-19] MEDS ORDERED: MED REC IN PROGRESS XX SCH (19:25)
[2024-02-19] MEDS ORDERED: HYDR-3713 PO (20:33)
[2024-02-19] MEDS: NORCO 5/325MG TABLET (HOME DOSE PACK) PO ONE (20:42)
== END 2024-02-19 20:54 | disposition home or self-care (01) ==
LOC: M ED 11:59
DX: S83.512A Sprain of anterior cruciate ligament of left knee, initial encounter (principal); M25.462 Effusion, left knee; M23.222 Derangement of posterior horn of medial meniscus due to old tear or injury, left knee; X50.0XXA Overexertion from strenuous movement or load, initial encounter; Z79.1 Long term (current) use of non-steroidal anti-inflammatories (NSAID); Z79.899 Other long term (current) drug therapy; Z88.1 Allergy status to other antibiotic agents; Z88.8 Allergy status to other drugs, medicaments and biological substances; Y92.9 Unspecified place or not applicable; Y93.89 Activity, other specified; Y99.9 Unspecified external cause status
CPT/HCPCS: 36415; 73564; 73700; 73721; 80048; 85027; 85652; 86140; 96374; 96375; 96376; 99284; J1885; J2405

== ENCOUNTER 2024-03-21 14:19 | Day surgery (SDC) | payer OTHER ==
[~2024-03-21] VITALS: Ht 167.6 cm; Wt 82.6 kg
[~2024-03-21 14:19] MED LIST changes: +HYDR-3713 PO; +TIRZ5PEN3 SQ
[2024-03-21] MEDS ORDERED: ONDANSETRON 4MG 2ML VIAL As Ordered ONE (16:21)
[2024-03-21] MEDS ORDERED: KETOROLAC 60MG 2ML VIAL As Ordered ONE (16:21)
[2024-03-21] MEDS ORDERED: LIDOCAINE 2% 100MG/5ML SDV (FOR ANES.) As Ordered ONE (16:21)
[2024-03-21] MEDS ORDERED: propofoL 200 MG/20 ML VIAL As Ordered ONE (16:21)
[2024-03-21] MEDS ORDERED: fentaNYL 100 MCG/2 ML INJECTION As Ordered ONE (16:21)
[2024-03-21] MEDS ORDERED: MIDAZOLAM INJ 2MG/2ML VIAL As Ordered ONE (16:21)
[2024-03-21] MEDS ORDERED: METOCLOPRAMIDE INJ 10MG/2ML VIAL As Ordered ONE (16:22)
[2024-03-21] MEDS ORDERED: OXYC-517 PO (16:56)
[2024-03-21] MEDS ORDERED: ACET325C5 PO (16:57)
[2024-03-21] MEDS ORDERED: CELE1CAP4 PO (16:58)
[2024-03-21] MEDS ORDERED: COLA100C5 PO (16:58)
[2024-03-21] MEDS ORDERED: ONDA-282 PO (16:59)
[2024-03-21] MEDS ORDERED: ACETAMINOPHEN 1000MG 100ML IV BAG As Ordered ONE (17:16)
[2024-03-21] MEDS: ceFAZolin SOD 2 GM in IV 1 EA IV ONE (17:30)
[2024-03-21] MEDS ORDERED: HYDROmorphone HCL 2MG/ML 1ML VIAL As Ordered ONE (17:47)
[2024-03-21] MEDS: fentaNYL 100 MCG/2 ML INJECTION IV PRN (19:56)
[2024-03-21] MEDS: LR 1,000 ML IV SCH (20:02)
[2024-03-21] MEDS: HYDROMORPHONE HCL 0.5 MG/ 0.5 ML SYRINGE IV PRN (20:15)
[2024-03-21] MEDS: oxyCODONE 5MG TAB PO PRN (20:15)
[2024-03-21] MEDS: ONDANSETRON 4MG 2ML VIAL IV PRN (20:29)
[2024-03-21] MEDS ORDERED: diphenhydrAMINE 50MG/ML VIAL As Ordered ONE (20:38)
[2024-03-21] MEDS: diphenhydrAMINE 50MG/ML VIAL IV PRN (20:40)
[2024-03-21 22:00] VITALS: BP 112/59
[2024-03-21 22:40] VITALS: TEMP 97.4; O2SAT 99
== END 2024-03-21 22:49 | disposition home or self-care (01) ==
LOC: M SDC 14:19
PROVIDERS: ATTEND Orthopaedic Surgery
DX: S83.512A Sprain of anterior cruciate ligament of left knee, initial encounter (principal); S83.212A Bucket-handle tear of medial meniscus, current injury, left knee, initial encounter; X58.XXXA Exposure to other specified factors, initial encounter; Y93.75 Activity, martial arts; F32.A Depression, unspecified; G43.909 Migraine, unspecified, not intractable, without status migrainosus; G40.909 Epilepsy, unspecified, not intractable, without status epilepticus; Z79.899 Other long term (current) drug therapy; Z88.1 Allergy status to other antibiotic agents
CPT/HCPCS: 29882; 29888; 76000; C1713; J0131; J0690; J1100; J1170; J1200; J1885; J2250; J2405; J2765; J3010

== ENCOUNTER → 2024-04-27 | Outpatient (CLI) | payer OTHER ==
[~2024-04-27] MED LIST changes: +ACET325C5 PO; +CELE1CAP4 PO; +COLA100C5 PO; +ONDA-282 PO; +OXYC-517 PO
== END ==
LOC: M SOG 09:03
PROVIDERS: ATTEND Orthopaedic Surgery
DX: S83.512D Sprain of anterior cruciate ligament of left knee, subsequent encounter (principal); Y93.9 Activity, unspecified; Y92.9 Unspecified place or not applicable

== ENCOUNTER → 2024-10-14 | Outpatient (CLI) | payer OTHER | LOC: M SOG 14:25 | PROVIDERS: ATTEND Neuromusculoskeletal Medicine, Sports Medicine | DX: S83.512D Sprain of anterior cruciate ligament of left knee, subsequent encounter (principal); S83.212D Bucket-handle tear of medial meniscus, current injury, left knee, subsequent encounter ==